=== PATIENT | male | born 1955 | race Caucasian/White ===

== ENCOUNTER 2017-10-24 13:17 | Outpatient (CLI) | payer MEDICAID, OTHER ==
[2014-10-29 07:06] VITALS: O2SAT 100
== END 2017-10-24 13:18 | disposition home or self-care (01) | DRG 556 ==
LOC: CONVCARE 13:17
PROVIDERS: ATTEND Orthopaedic Surgery
DX: M25.512 Pain in left shoulder (principal); M13.812 Other specified arthritis, left shoulder
CPT/HCPCS: 73020